=== PATIENT | female | born 1965 | race Hispanic/Latino ===

== ENCOUNTER 2018-06-16 06:45 | Observation (INO) | payer BC ==
[2018-06-15 12:39] LABS: BASOPHILS # (AUTO) 0.1 (0.0-0.1); BASOPHILS % 0.8 % (0.0-1.0); EOSINOPHILS # (AUTO) 0.2 (0.0-0.4); EOSINOPHILS % 2.3 % (0.0-6.0); HEMATOCRIT 41.1 % (34.2-44.1); HEMOGLOBIN 13.7 g/dL (12.0-16.0); LYMPHOCYTES # (AUTO) 2.9 (1.0-3.2); LYMPHOCYTES % 41.1 % (18.0-39.1); MEAN CORPUSCULAR HEMOGLOBIN 31.5 pg (28-32); MEAN CORPUSCULAR HGB CONC 33.3 g/dL (31-35); MEAN CORPUSCULAR VOLUME 94.5 fL (81-99); MONOCYTES # (AUTO) 0.5 (0.2-0.8); MONOCYTES % 6.5 % (4.4-11.3); NEUTROPHILS # (AUTO) 3.5 (2.1-6.9); NEUTROPHILS % 49.2 % (38.7-80.0); PLATELET COUNT 270 x10e3/uL (140-360); RED BLOOD COUNT 4.35 x10e6/uL (3.6-5.1); RED CELL DISTRIBUTION WIDTH 13.9 % (11.7-14.4)
[2018-06-15 12:49] LABS: INR 0.84
[2018-06-15 12:50] LABS: PARTIAL THROMBOPLASTIN TIME 28.2 seconds (23.8-35.5)
--- NOTE | 2018-06-15 12:59 | Diagnostic Imaging Report ---
EXAMINATION: PA and lateral views of the chest. COMPARISON: None CLINICAL HISTORY: Preoperative study for cervical spine surgery DISCUSSION: Lungs are well-inflated and without focal consolidation, pleural effusion, or pneumothorax. Atherosclerotic calcification of the thoracic aorta. Otherwise normal cardiomediastinal contour. No acute osseous abnormality. Multilevel degenerative disc changes of the lower thoracic and upper lumbar spine. Surgical anchor projects over the right humeral head. Gastric band apparatus is partially visualized. IMPRESSION: No acute cardiopulmonary abnormalities. Signed by: Dr. Kenton Kay M.D. on 06/15/2018 12:55 PM
[2018-06-15 13:00] LABS: ANION GAP 10.6 mmol/L (8-16); BLOOD UREA NITROGEN 12 mg/dL (7-26); BUN/CREATININE RATIO 17 (6-25); CARBON DIOXIDE 26 mmol/L (22-29); CHLORIDE 104 mmol/L (98-107); CREATININE, SERUM 0.72 mg/dL (0.57-1.11); EST GLOMERULAR FILTRATION RATE > 60 ML/MIN (60-); GLUCOSE 94 mg/dL (74-118); POTASSIUM 3.6 mmol/L (3.5-5.1); SODIUM 137 mmol/L (136-145)
[~2018-06-16] VITALS: Ht 162.6 cm; Wt 62.1 kg
[~2018-06-16 06:45] MED LIST: LISINOPRIL10 MG PO; TYLENOL WITH C1 EACH PO; ULTRAM50 MG PO
[2018-06-16] MEDS ORDERED: BACITRACIN 50,000 UNIT VIAL ONE (06:53)
[2018-06-16] MEDS ORDERED: GELATIN SPONGE 12-7MM ONE (06:53)
[2018-06-16] MEDS ORDERED: BUPIVACAINE 0.5%/EPI 30 ML SDV INJ ONE (06:53)
[2018-06-16] MEDS ORDERED: THROMBIN FOR SOLN 5,000 UNIT VIAL ONE (06:53)
[2018-06-16] MEDS ORDERED: ACETAMINOPHEN 1000 MG/100 ML 100 ML IV ONE (07:16)
--- OUTSIDE RECORDS SUMMARY | 2018-06-16 07:29 | XMS REPORT ---
Author Author [facility] Address Unknown Phone Unavailable Care Team Providers Care Senior Sourcing Manager Name Role Phone TIMBO MADDEN Unavailable Unavailable REBECCA PABON Unavailable Unavailable Problems This patient has no known problems. Allergies, Adverse Reactions, Alerts This patient has no known allergies or adverse reactions. Medications This patient has no known medications. Results Test Description Test Time Test Comments Text Results Atomic Results Result Comments CHEST 2 VIEWS 2018-06-15 12:52:00 [place] [address] Patient Name: ROMULO EDMONDS MR #: [id number] : 1965 Age/Sex: 53/F Req #: [id number] Adm Physician: Ordered by: TIMBO MADDEN MD Report #: [id number] Location: OR Room/Bed: Procedure: [id number] DX/CHEST 2 VIEWS Exam Date: 06/15/18 Exam Time: 1225 REPORT STATUS: Signed EXAMINATION: PA and lateral views of the chest. C OMPARISON: None CLINICAL HISTORY: Preoperative study for cervical spine surgery DISCUSSION: Lungs are well-inflated and without focal consolidation, pleural effusion, or pneumothorax. Atherosclerotic calcification of the thoracic aorta. Otherwise normal cardiomediastinal contour. No acute osseous abnormality. Multilevel degenerative disc changes of the lower thoracic and upper lumbar spine. Surgical anchor projects over the right humeral head. Gastric band apparatus is partially visualized. IMPRESSION: No acute cardiopulmonary abnormalities. Signed by: Dr. Nabila Garcia M.D. on 06/15/2018 12:55 PM Dictated By: NABILA GARCIA MD 1255 Transcribed By: LYNN on 06/15/18 1255 COPY TO: TIMBO MADDEN MD TISSUE EXAM 2017-07-02 15:59:00 Surgical Pathology Report Case: [id number] Authorizing Provider: Yassine Pabon MD Collected: 07/01/2017 0821 Ord ering Location: [facility] ENDOSCOPY Received: 07/01/2017 1225 SERVICES Pathologist: Marimar Baez MD Specimen: Polyp, Colon - Sigmoid SIGMOID COLON POLYP, BIOPSY: - COLON MUCOSA WITH INCREASED INFLAMMATION IN THE LAMINA PROPRIA WITH INCREASED - INTRAEPITHELIAL LYMPHOCYTOSIS WITH RARE HISTIOCYTE COLLECTION, SEE COMMENT - FOCAL SURFACE HYPERPLASTIC CHANGES - NEGATIVE FOR DYSPLASIA Signing Pathologist Direct Phone Line: [phone] signed by Marimar Baez MD on 07/02/2017 at 3:59 PMA. These features are suggestive of lymphocytic colitis, which can be seen in multiple conditions including drugs, infection or other systemic disease. Clinical correlation is recommended in this asymptomatic patient.Endoscopic report [id number] cancer screening Sigmoid colon polyp The specimen is received in a formalin-filled container labeled with the patient's information and labeled "sigmoid colon polyp" and consists of two fragments of haas tissue measuring 0.3 and 0.5 cm submitted in A1. CG/ew Performed
--- OUTSIDE RECORDS SUMMARY | 2018-06-16 07:29 | XMS REPORT | Clinical Summary ---
Author Author SIMON [facility] Address Unknown Phone Unavailable Care Team Providers Care Wood Gouger Name Role Phone Cooper Sanchez MD PCP Unavailable Allergies Comments Active Allergy Reactions Severity Noted Date Low BP Morphine Shortness Of High 06/29/2017 Breath, Rash, Other (See Comments) Penicillins Shortness Of High 06/29/2017 Breath, Palpitations Medications End Date Status Medication Sig Dispensed Refills Start Date Active LISINOPRIL ORAL Take by mouth 0 as needed. Active IXEKIZUMAB (TALTZ Inject 0 AUTOINJECTOR SUBQ) subcutaneousl y every 30 (thirty) days. Active traMADol (ULTRAM) 50 mg Take 50 mg by 0 tablet mouth every 6 (six) hours as needed for Pain. Active carisoprodol (SOMA) 350 Take 350 mg 0 MG tablet by mouth 4 (four) times daily as needed for Muscle spasms. Active BENZONATATE (TESSALON Take by 0 PERLES ORAL) mouth. Active Problems No known active problems Encounters Care Team Description Date Type Specialty Kev Hernández MD 07/01/2017 Anesthesia Event Yassine Pabon MD COLONOSCOPY,POLYPECTOMY 07/01/2017 Surgery Yassine Pabon MD 07/01/2017 Hospital Encounter Resource, Oqmt Preadmit Phone 06/29/2017 Hospital Pre-Admission Testing Encounter after 06/15/2017 Social History Date Tobacco Use Types Packs/Day Years Used Current Every Day Smoker 0.5 25 Smokeless Tobacco: Never Used Alcohol Use Drinks/Week oz/Week Comments Yes occasionally Sex Assigned at Date Recorded Not on file Industry Job Start Date Occupation Not on file Not on file Not on file Travel End Travel History Travel Start No recent travel history available. Last Filed Vital Signs Time Taken Vital Sign Reading 07/01/2017 9:00 AM CDT Blood Pressure 110/70 07/01/2017 9:00 AM CDT Pulse 86 07/01/2017 8:30 AM CDT Temperature 36.9 C (98.4 F) 07/01/2017 9:00 AM CDT Respiratory Rate 12 07/01/2017 9:00 AM CDT Oxygen Saturation 100% - Inhaled Oxygen - Concentration 07/01/2017 7:00 AM CDT Weight 54.1 kg (119 lb 3.2 oz) 07/01/2017 7:00 AM CDT Height 162.6 cm (5' 4") 07/01/2017 7:00 AM CDT Body Mass Index 20.46 Plan of Treatment Not on file Procedures Comments Procedure Name Priority Date/Time Associated Diagnosis REPORT OF PROCEDURE - 07/01/2017 ENDOSCOPY URL 8:24 AM CDT TISSUE EXAM AP Routine 07/01/2017 8:21 AM CDT COLONOSCOPY,POLYPECTOMY 07/01/2017 Screen for colon cancer 8:00 AM CDT after 06/15/2017 Results * REPORT OF PROCEDURE - ENDOSCOPY URL (07/01/2017 8:24 AM CDT) Narrative Performed At * Tissue Exam (07/01/2017 8:21 AM CDT) Case Report Surgical Pathology [facility] Report [facility] Case: [id number] Authorizing Provider:Yassine Pabon MDCollected: 07/01/2017 0821 Ordering Location: [facility] ENDOSCOPY Received: 07/01/2017 1225 SERVICES Pathologist: Marimar Baez MD Specimen:Polyp, Colon - Sigmoid DIAGNOSIS SIGMOID COLON POLYP, BIOPSY: [facility] - COLON MUCOSA WITH [facility] INCREASED INFLAMMATION IN THE LAMINA PROPRIA WITH INCREASED - INTRAEPITHELIAL LYMPHOCYTOSIS WITH RARE HISTIOCYTE COLLECTION, SEE COMMENT - FOCAL SURFACE HYPERPLASTIC CHANGES - NEGATIVE FOR DYSPLASIA Signing Pathologist Direct Phone Line: [phone] COMMENT A. These features are [facility] suggestive of lymphocytic [facility] colitis, which can be seen in multiple conditions including drugs, infection or other systemic disease. Clinical correlation is recommended in this asymptomatic patient. Endoscopic report reviewed CPT Code(s) SJ/ew [facility] [address] x1 [facility] CLINICAL HISTORY Colon cancer screening [facility] SPECIMEN SOURCE Sigmoid colon polyp [facility] GROSS DESCRIPTION The specimen is received in a [facility] formalin-filled container [facility] labeled with the patient's information and labeled "sigmoid colon polyp" and consists of two fragments of haas tissue measuring 0.3 and 0.5 cm submitted in A1. CG/ew MICROSCOPIC DESCRIPTION Performed [facility] Specimen Tissue - Polyp, Colon - Sigmoid Performing Organization Address City/State/Zipcode Phone Number [facility] [address] [place] [address] MEDICAL CENTER after 06/15/2017 Insurance Payer Benefit Subscriber ID Type Phone Address Plan / Group BLUE CROSS/BLUE SHIELD [facility] PPO xxxxxxxxxxxx PPO [phone] [address] [place] [address] CHOICE
[2018-06-16] MEDS ORDERED: VANCOMYCIN 1GM/NS 250 ML 250 ML ONE (08:43)
[2018-06-16] MEDS ORDERED: FENTANYL CITRATE/PF 100MCG/2 ML INJ ONE ×2 (10:53→18:12)
[2018-06-16] MEDS ORDERED: ONDANSETRON HCL INJ 2MG/ML 2ML 2 MG/ML VIAL IV PRN (11:00)
[2018-06-16] MEDS ORDERED: PROMETHAZINE HCL (IM) 25 MG/ML VIAL IM PRN (11:00)
[2018-06-16] MEDS ORDERED: MAGNESIUM/ALUMINUM/SIMETHICONE 30 ML UDC PO PRN (11:00)
[2018-06-16] MEDS ORDERED: ZOLPIDEM TARTRATE 5 MG TAB PO PRN (11:00)
[2018-06-16] MEDS ORDERED: ACETAMINOPHEN 325 MG TAB PO PRN (11:00)
[2018-06-16] MEDS ORDERED: MORPHINE SULFATE 5 MG/ML VIAL IM PRN (11:00)
[2018-06-16] MEDS ORDERED: CEPACOL SORE THROAT LOZENGES PO PRN (11:00)
[2018-06-16] MEDS ORDERED: HYDROMORPHONE 2MG/ML 2 MG/ML ML IV PRN (11:00)
[2018-06-16] MEDS ORDERED: HYDROMORPHONE 2MG/ML 2 MG/ML ML ONE (11:11)
--- OUTSIDE RECORDS SUMMARY | 2018-06-16 11:35 | XMS REPORT | Clinical Summary ---
Author Author SIMON [facility] Address Unknown Phone Unavailable Care Team Providers Care Trouble Locater Name Role Phone Cooper Sanchez MD PCP [...] 8:21 AM CDT) Case Report Surgical Pathology [facility] Report [facility] Case: [id number] Authorizing Provider:Yassine Pabon MDCollected: 07/01/2017 0821 Ordering Location: [facility] ENDOSCOPY Received: 07/01/2017 1225 SERVICES Pathologist: Marimar Baez MD Specimen:Polyp, Colon - Sigmoid DIAGNOSIS SIGMOID COLON POLYP, BIOPSY: [facility] - COLON MUCOSA WITH [facility] INCREASED INFLAMMATION IN THE LAMINA PROPRIA WITH INCREASED - INTRAEPITHELIAL LYMPHOCYTOSIS WITH RARE HISTIOCYTE COLLECTION, SEE COMMENT - FOCAL SURFACE HYPERPLASTIC CHANGES - NEGATIVE FOR DYSPLASIA Signing Pathologist Direct Phone Line: [phone] COMMENT A. These features are [facility] suggestive of lymphocytic [facility] colitis, which can be seen in multiple conditions including drugs, infection or other systemic disease. Clinical correlation is recommended in this asymptomatic patient. Endoscopic report reviewed CPT Code(s) SJ/ew [facility] [address] [facility] CLINICAL HISTORY Colon cancer screening [facility] SPECIMEN SOURCE Sigmoid colon polyp [facility] GROSS DESCRIPTION The specimen is received in a [facility] formalin-filled container [facility] labeled with the patient's information and labeled "sigmoid colon polyp" and consists of two fragments of haas tissue measuring 0.3 and 0.5 cm submitted in A1. CG/ew MICROSCOPIC DESCRIPTION Performed [facility] Specimen Tissue - Polyp, Colon - Sigmoid Performing Organization Address City/State/Zipcode Phone Number [facility] [address] [place] [address] MEDICAL CENTER after 06/15/2017 Insurance Payer Benefit Subscriber ID Type Phone Address Plan / Group BLUE CROSS/BLUE SHIELD [facility] PPO xxxxxxxxxxxx PPO [phone] [address] [place] [address] CHOICE
[2018-06-16] MEDS ORDERED: KETOROLAC TROMETHAMINE 30 MG/ML VIAL ONE (11:58)
--- NOTE | 2018-06-16 12:00 | NUR ---
report received from Caty, patient to arrive on unit alert and oriented.
--- NOTE | 2018-06-16 12:07 | NUR ---
patient arrived on unit alert and oriented, call bustamante within reach and bed in lowest position.
[2018-06-16 12:20] VITALS: BP 129/75
[2018-06-16 12:28] VITALS: BP 129/75
[2018-06-16] MEDS: LACTATED RINGER'S 1,000 ML IV SCH ×3 (13:00→19:17)
[2018-06-16] MEDS: HYDROMORPHONE 2MG/ML 2 MG/ML ML IV PRN ×2 (13:05→17:00)
[2018-06-16 13:15] VITALS: BP 129/75
[2018-06-16] MEDS ORDERED: CEFAZOLIN SOD 1 GM/NS 50ML 50 ML IV SCH (14:00)
[2018-06-16] MEDS: CARISOPRODOL 350 MG TAB PO PRN ×2 (14:23→20:50)
[2018-06-16 16:05] VITALS: BP 134/72
[2018-06-16] MEDS: OXYCODONE/ACETAMINOPHEN 5-325 1 EACH TABLET PO PRN ×2 (16:05→20:50)
--- NOTE | 2018-06-16 16:27 | Operative Report ---
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 PROCEDURES: 1. C3-4 anterior cervical diskectomy and microsurgical osteophyte resection and allograft fusion, 06615. 2. C4-5 anterior cervical diskectomy and microsurgical osteophyte resection and allograft fusion, 13991. 3. Preparation of tricortical iliac crest allograft, 37213. 4. C3-4 and C4-5 anterior cervical plating, 39358. ANESTHESIA: General. INDICATIONS: The patient is a woman, who presents with C3-4 and C4-5 spondylosis with severe spinal stenosis and myelopathy and myelomalacia. She was taken to the operating room for two-level anterior cervical decompression and fusion. PROCEDURE IN DETAIL: After induction of general anesthesia, the patient was placed on the operating table in supine position. The right side of the neck was prepped and draped in sterile fashion. The fluoroscopic C-arm was positioned in cross-table lateral orientation. Somatosensory-evoked potentials and motor-evoked potentials were recorded. An incision was created on the right side of neck superimposed on the C4 vertebral body as determined by fluoroscopy. The platysma was divided inline with the incision. A subplatysmal dissection was carried out and avascular plane of dissection was developed medial to the sternocleidomastoid muscle and was followed medially to the carotid sheath to the anterior border of the cervical spine. The deep cervical fascia was opened. The esophagus was retracted to the left. The attachments of longus colli muscles to the anterolateral aspects of vertebral bodies of C3, C4 and C5 were divided. The large anterior osteophytes were resected. Bittinger posts were inserted into C3 and C5. The Bittinger distractor was used to distract both disk spaces simultaneously. The anterior annuli of disk were incised with a #11 blade. The contents of both disks were thoroughly evacuated with angled curettes and pituitary rongeurs. Posterior osteophytes were meticulously drilled with a 2 mm cutting bur on a high-speed drill until they were completely removed. The posterior annulus of the disk, herniated disk material, and the posterior longitudinal ligament were resected layer by layer until the dura was fully exposed and decompressed and medial aspects of the uncinate processes were resected bilaterally to further expose any compressed origins of the corresponding nerve roots. After satisfactory decompression had been achieved, the endplates were prepared for fusion. Two pieces of tricortical iliac crest allograft were cut to the size and shapes of the disk spaces and were inserted into the spaces under distraction and fluoroscopic guidance. The distraction was released and the distraction posts were removed. A Synthes CSLP variable type anterior cervical plate was selected and was affixed to the vertebral bodies of C3, C4 and C5 with one pair of 14 x 4.35 mm and two pairs of 16 x 4.35 mm screws. All screw holes were drilled and tapped on the lateral fluoroscopic guidance. All screws were locked with the appropriate locking screws. An excellent construct was obtained. The wound was copiously irrigated with bacitracin solution. Meticulous hemostasis was secured. A small Hemovac drain was placed over the plate and brought out through a separate stab incision. The platysma was closed with 3-0 Vicryl sutures. The skin was closed with 4-0 Monocryl sutures in subcuticular fashion. Steri-Strips and a dressing applied. The patient was awakened, extubated, taken to postanesthesia care unit in stable condition. No intraoperative complications were encountered. Estimated blood loss was 30 mL. No adverse SSEP or MEP changes were noted at any point in the operation. Leon Guerrier MD PP/MARY /[id number]
[2018-06-16] MEDS ORDERED: ONDANSETRON HCL INJ 2MG/ML 2ML 2 MG/ML VIAL ONE (18:10)
[2018-06-16] MEDS ORDERED: PROPOFOL IV EMULSION 10 MG/ML 20 ML VIAL ONE (18:10)
[2018-06-16] MEDS ORDERED: IBUPROFEN 800 MG/250 ML BAG IV ONE (18:10)
[2018-06-16] MEDS ORDERED: DEXAMETHASONE SOD PHOS INJ 4 MG/ML VIAL ONE (18:10)
[2018-06-16] MEDS ORDERED: LIDOCAINE HCL 2% JELLY 5 ML TUBE ONE (18:10)
[2018-06-16] MEDS ORDERED: LIDOCAINE HCL 2% LOCAL INJ 5 ML SDV VIAL INJ ONE (18:10)
[2018-06-16] MEDS ORDERED: GLYCOPYRROLATE INJ 1MG/ 5 ML SYR ONE (18:10)
[2018-06-16] MEDS ORDERED: KETAMINE HCL INJ 50 MG/ML 10 ML VIAL ONE (18:12)
[2018-06-16] MEDS ORDERED: MIDAZOLAM HCL 2 MG/2 ML VIAL ONE (18:12)
--- NOTE | 2018-06-16 18:45 | NUR ---
handoff report given to shift boss nurse, patient aware of change and in no distress. call bustamante within reach and bed in lowest position.
[2018-06-16 20:00] VITALS: BP 147/85
[2018-06-16 21:00] VITALS: BP 147/85
[2018-06-17] VITALS: BP 145/79
[2018-06-17] MEDS: OXYCODONE/ACETAMINOPHEN 5-325 1 EACH TABLET PO PRN ×3 (00:50→12:32)
[2018-06-17] MEDS: CARISOPRODOL 350 MG TAB PO PRN ×2 (00:50→04:52)
[2018-06-17 04:00] VITALS: BP 140/85
--- NOTE | 2018-06-17 07:25 | Diagnostic Imaging Report ---
ADDENDUM #1 ADDENDUM: The prior report had a dictation error stating that there was cervical fixation. This is addended to state that there was anterior cervical fusion. The corrected report is as follows. EXAM: Cervical spine radiographs-2 views INDICATION: Status post cervical fusion. COMPARISON: None FINDINGS: C1 through the mid aspect of C7 are visualized on the lateral view. There are postsurgical changes status post anterior fusion of C3-C5 with plate and bilateral screw construct. There is intervertebral graft material at C3-C4 and C4-C5. There is prevertebral soft tissue edema and air as well as a right neck surgical drain terminating anterior to the C6-C7 interspace, consistent with recent surgery. There is straightening of the cervical lordosis. There is minimal retrolisthesis of C3 on C4. No evidence of acute fracture. There are moderate degenerative disc and facet degenerative changes. IMPRESSION: Recent post surgical findings status post C3-C5 anterior cervical fusion. Signed by: Dr. Zulay Ugarte MD on 06/17/2018 7:46 AM ORIGINAL REPORT EXAM: Cervical spine radiographs-2 views INDICATION: Status post cervical fixation. COMPARISON: None FINDINGS: C1 through the mid aspect of C7 are visualized on the lateral view. There are postsurgical changes status post anterior fusion of C3-C5 with plate and bilateral screw construct. There is intervertebral graft material at C3-C4 and C4-C5. There is prevertebral soft tissue edema and air as well as a right neck surgical drain terminating anterior to the C6-C7 interspace, consistent with recent surgery. There is straightening of the cervical lordosis. There is minimal retrolisthesis of C3 on C4. No evidence of acute fracture. There are moderate degenerative disc and facet degenerative changes. IMPRESSION: Recent post surgical findings status post C3-C5 anterior cervical fixation. Signed by: Dr. Zulay Ugarte MD on 06/17/2018 7:21 AM
--- NOTE | 2018-06-17 08:10 | NUR ---
Pateint was c/o pain lower neck, and so anxious new order recvd from Dr Guerrier to give 1 dose of Valium 10mg PO
[2018-06-17] MEDS ORDERED: ONDANSETRON HCL 4 MG ORAL DISINTEGRATING TAB PO PRN (08:45)
[2018-06-17 08:46] VITALS: BP 120/74
[2018-06-17] MEDS ORDERED: LISINOPRIL 20 MG TAB PO SCH (09:00)
[2018-06-17] MEDS ORDERED: LISINOPRIL 10 MG TAB PO SCH (09:00)
[2018-06-17] MEDS ORDERED: DIAZEPAM 5 MG TAB PO ONE (09:15)
--- NOTE | 2018-06-17 12:50 | NUR ---
patient stated she feel better and pain not worse, family here to give ride
[2018-06-17] MEDS ORDERED: NORCO 7.5-3251 EACH PO (13:21)
[2018-06-17 13:40] VITALS: BP 141/77
--- NOTE | 2018-06-17 13:40 | NUR ---
IV Canula removed with tip intact, prescription and discharge instruction instructions given, patient verbalized understanding, dressing intact on anterior neck with neck collar ON. NOT in any distress transported via wc to front lobby , patient got all personnel belongings with her
--- NOTE | 2018-06-17 13:40 | NUR ---
Patient discharged home, Alert with no distress, removed Drain , pressure dressing applied
== END 2018-06-17 13:39 | disposition home or self-care (01) ==
LOC: OR 06:45 → PACU V 10:52 → IMCU 12:00
PROVIDERS: ADMIT Neurological Surgery; ATTEND Neurological Surgery
CPT/HCPCS: 36415; 71046; 72040; 77003; 80048; 85025; 85610; 85730; 86850; 86900; 88304; 93005; C1713; G0378; J1100; J1885; J2001; J2250; J2405; J3370; J7121

== ENCOUNTER → 2018-07-14 | Outpatient (CLI) | payer BC ==
[~2018-07-14] MED LIST changes: +NORCO 7.5-3251 EACH PO
--- NOTE | 2018-07-14 17:07 | Diagnostic Imaging Report ---
Cervical Spine, 4 views with flexion and extension. HISTORY: Evaluate effusions stones. COMPARISON: 06/17/18. FINDINGS: On the lateral view, the cervical spine is visualized from the skull base to C7. The alignment is normal. Flexion and extension views demonstrate no change in alignment. No acute displaced fracture is identified involving the visualized cervical spine. There is demonstration of status post anterior fusion of C3-C5 with metallic plate and transfixing screws which are unchanged in position. There are also interbody grafts. Degenerative disc disease and spondylosis at C6-C7, and to lesser degree C2-C3. Surgical drain has been removed. IMPRESSION: Stable anterior fusion of C3-C5 with intact hardware. Signed by: Dr. Yunier Vang M.D. on 07/14/2018 5:03 PM
--- NOTE | 2018-07-14 17:08 | Diagnostic Imaging Report ---
SHOULDER RIGHT COMPLETE - 3 views HISTORY: Cervical spondylosis. Pain. COMPARISON: None available. FINDINGS: Bones: No acute displaced fracture. Osseous alignment is within normal limits. Single screw transfixing the right humeral head. Joints: Mild degenerative osteoarthrosis of the AC joint with inferior acromial spur. Minimal degenerative changes of the glenohumeral joint. Soft tissues: The soft tissues appear unremarkable. 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 Signed by: Dr. Yunier Vang M.D. on 07/14/2018 5:05 PM
== END ==
LOC: RAD 15:36
PROVIDERS: ATTEND Neurological Surgery
DX: M50.20 Other cervical disc displacement, unspecified cervical region (principal); Z98.1 Arthrodesis status
CPT/HCPCS: 72050